=== PATIENT | male | born 1965 | race American Indian/Alaskan Native ===

== ENCOUNTER → 2025-02-01 | Outpatient (CLI) | payer BC, SELFPAY ==
[2025-02-01 09:44] LABS: % Variance 4 %; % Variance Motility 0 %; Count Side 1 48; Count Side 2 46; Motl CLS 1 75; Motl CLS 2 75; Room Temperature 24 (20-27C (Area)); Sperm Count 47 Million (20-50); Sperm Motility 75 % (>=50)
== END | disposition home or self-care (01) ==
PROVIDERS: Referring Provider Physician Assistant; Visit Provider Physician Assistant
DX: Z31.41 Encounter for fertility testing (principal)
CPT/HCPCS: 89310